=== PATIENT | male | born 1940 | race Caucasian/White ===

== ENCOUNTER 2016-11-26 20:49 | Emergency (ER) | payer BC ==
[~2016-11-26] VITALS: Ht 175.3 cm; Wt 54.4 kg
--- NOTE | ~2016-11-26 | CR230 ---
[facility] A Service of [facility] [place] RADIOLOGY TEXT RESULTS PATIENT: LUCITA RICHEY JR LOCATION: [facility] : 39 UNIT #: [id number] AGE: [address]: Kali Horta MD SEX: M ORDER DR: [id number] [facility]. [place], [place] [address] [id number] MR#: [id number] #: [id number] NAME: LUCITA RICHEY JR : 1940 SEX: M STUDY DATE/TIME: 11/26/2016 22:19 UNIT: [facility] ROOM: STUDY DESCRIPTION: CR Shoulder Min 2 View Rt Attending Physician: Kali Horta M.D. Ordering Physician: Kali Horta M.D. Primary Care Physician: Primary Care Physician No MEDICAL IMAGING REPORT This report is preliminary unless electronic signature is present EXAM Right shoulder, 11/26/2016 HISTORY 75-year-old male in the ED complaining of right shoulder pain after injury. Fell earlier today prior to arrival. TECHNIQUE Three-view right shoulder series. FINDINGS No fracture, dislocation or other acute osseous abnormality is visible. 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 IMPRESSION 1. No acute osseous abnormality. 2. 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 Dictated by... Sameer Yu M.D. THIS IS AN ELECTRONICALLY VERIFIED REPORT Sameer Yu M.D. at 11/28/2016 6:02 AM BRIANNA/lavon TD: 11/27/2016 23:39 JOB #: [id number] MEDICAL IMAGING REPORT [facility] A Service [facility] RADIOLOGY TEXT RESULTS PATIENT: LUCITA RICHEY JR LOCATION: [facility] : 39 UNIT #: [id number] AGE: [address]: Kali Horta MD SEX: M ORDER DR: Page 1 of 1 COPY
--- NOTE | ~2016-11-26 | CT71 ---
[facility] A Service of [facility] RADIOLOGY TEXT RESULTS PATIENT: LUCITA RICHEY JR LOCATION: [facility] : 39 UNIT #: [id number] AGE: [address]: Kali Horta MD SEX: M ORDER DR: [id number] [facility] [place], [place] [address] [id number] E MR#: [id number] Acc #: [id number] NAME: LUCITA RICHEY JR : 1940 SEX: M STUDY DATE/TIME: 11/26/2016 23:10 UNIT: [facility] ROOM: STUDY DESCRIPTION: CT Head Wo Contrast Attending Physician: Kali Horta M.D. Ordering Physician: Kali Horta M.D. Primary Care Physician: Primary Care Physician No MEDICAL IMAGING REPORT This report is preliminary unless electronic signature is present EXAM CT head, noncontrast, 11/26/2016 HISTORY 75-year-old male in the ED after head injury. Patient fell, striking the back of his head at about 2045 hours today. Ethanol intoxication is reported. TECHNIQUE CT examination of the head without IV contrast. This CT exam was performed with one or more of the following radiation dose reduction techniques: automatic exposure control, adjustment of mA and/or kV according to patient size, and iterative reconstruction. FINDINGS No acute intracranial abnormality is identified, and there is no visible skull fracture. Moderately severe generalized cerebral and cerebellar atrophy with somewhat disproportionate enlargement of the ventricles. Moderate diffuse low-attenuation white matter changes are nonspecific but likely related to chronic small vessel disease. No evidence of intracranial hemorrhage, mass, mass effect or acute cerebral edema. IMPRESSION 1. No acute intracranial abnormality. No visible skull fracture. 2. Moderately severe diffuse chronic changes as noted above. [facility] A Service of [facility] RADIOLOGY TEXT RESULTS PATIENT: LUCITA RICHEY JR LOCATION: [facility] : 39 UNIT #: [id number] AGE: [address]: Kali Horta MD SEX: M ORDER DR: Dictated by... Sameer Yu M.D. THIS IS AN ELECTRONICALLY VERIFIED REPORT Sameer Yu M.D. at 11/28/2016 6:02 AM BRIANNA/lavon TD: 11/28/2016 00:07 JOB #: [id number] MEDICAL IMAGING REPORT Page 1 of 1 COPY
== END 2016-11-26 23:56 | disposition home or self-care (01) ==
LOC: CED 20:49 → EDBD 20:49 → CED 23:48
DX: S46.911A Strain of unspecified muscle, fascia and tendon at shoulder and upper arm level, right arm, initial encounter (principal); S00.03XA Contusion of scalp, initial encounter; I10 Essential (primary) hypertension; E78.5 Hyperlipidemia, unspecified; W01.0XXA Fall on same level from slipping, tripping and stumbling without subsequent striking against object, initial encounter; Y92.410 Unspecified street and highway as the place of occurrence of the external cause
CPT/HCPCS: 70450; 73030; 99284